=== PATIENT | male | born 1950 | race Caucasian/White ===

== ENCOUNTER 2021-08-03 13:11 | Outpatient (REF) | payer OTHER, MEDICARE, SELFPAY ==
--- NOTE | 2021-08-03 13:19 | EEG_ITS ---
SUBJECTIVE: This is a 16-channel EEG with an EKG lead. The patient is reported awake during the tracing. Background EEG rhythm is about 8 hertz, 5 to 70 microvolt posteriorly, lower amplitude fast anteriorly. Photic stimulation does not produce any significant driving. Hyperventilation is not performed. Cardiac lead does not reveal any significant abnormality. No sharp wave spikes or paroxysmal tendency or asymmetry noted. IMPRESSION: No significant abnormality noted on this EEG. MD PATRICIO Beavers/FABRICIO / [id number]
== END 2021-08-03 13:12 | disposition home or self-care (01) ==
LOC: HO.NEURO 13:11
PROVIDERS: PCP Internal Medicine; Visit Provider Psychiatry & Neurology Neurology
DX: R55 Syncope and collapse (principal)
CPT/HCPCS: 95816

== ENCOUNTER 2022-06-29 14:58 | Outpatient (REF) | payer MEDICARE, OTHER, SELFPAY ==
[2022-06-29 16:58] LABS: Folate 17.9 ng/mL (> or = 4.0); Vitamin B12 419 pg/mL (200-900)
[2022-07-03 17:24] LABS: Lyme Abs Screen <0.90 index
[2022-07-04 13:39] LABS: IgA 515 mg/dL (70-320); IgG 1410 mg/dL (600-1540); IgM 26 mg/dL (50-300)
[2022-07-04 21:08] LABS: Treponema pallidum Ab FTA ABS Nonreactive (Nonreactive)
== END 2022-06-29 14:59 | disposition home or self-care (01) ==
LOC: HO.LAB 14:58
PROVIDERS: PCP Internal Medicine; Visit Provider Psychiatry & Neurology Neurology
DX: G62.9 Polyneuropathy, unspecified (principal)
CPT/HCPCS: 36415; 82607; 82746; 82784; 86334; 86617; 86618; 86780

== ENCOUNTER → 2022-10-18 10:03 | Outpatient (BNVA) | payer MEDICARE, OTHER, SELFPAY | PROVIDERS: PCP Internal Medicine; Visit Provider Urology | DX: N13.30 Unspecified hydronephrosis (principal); N40.0 Benign prostatic hyperplasia without lower urinary tract symptoms | CPT/HCPCS: Q3014 ==

== ENCOUNTER → 2022-10-25 13:03 | Outpatient (BNVA) | payer MEDICARE, OTHER, SELFPAY | PROVIDERS: PCP Internal Medicine; Visit Provider Urology | DX: N40.0 Benign prostatic hyperplasia without lower urinary tract symptoms (principal); N13.30 Unspecified hydronephrosis; N32.9 Bladder disorder, unspecified | CPT/HCPCS: Q3014 ==

== ENCOUNTER 2023-02-06 10:09 | Outpatient (AMB) | payer OTHER, SELFPAY ==
--- NOTE | 2023-02-06 10:09 | MHC.OFFVIS ---
Intake Intake Visit Reasons: H&P (turbt 02/12/23) Intake Note: Patient is present for Telephone H&P Turbt (02/12/23) Urology Med: Finasteride, Tamsulosin Antibiotic Allergy: None Blood Thinner: None Pharmacy: [facility] Allergies modafinil [From Provigil] Allergy (Mild, Verified 02/06/23 10:10) unknown HPI HPI Comments History of Present Illness Details [place] is a pleasant male. He is a patient of Dr Johnston/Haley. He is seen for the following urologic issues - right hydronephrosis - possible bladder tumor - lower urinary tract symptoms Telemedicine Evaluation 15 min Consultation [employer] Mora Video attempted Planned for TURBT next week Main concern is pain relief after procedure Background diabetes - multiagent Hydronephrosis Right hydronephrosis Found incidentally during evaluation for cyst on spinal MRI Does not report symptoms Ultrasound shows right hydronephrosis with small stone Bladder tumor Incidental finding on ultrasound 2 times 1.5 cm lesions in bladder Concomitant incomplete bladder emptying Lower urinary tract symptoms Longstanding tamsulosin At this point appears to have overflow incontinence Exchange terazosin for tamsulosin PFSH Medical History H/O testicular biopsy Tobacco use Eczema Erectile dysfunction Hyperlipidemia Tendonitis Depression Acute saddle pulmonary embolism with acute cor pulmonale Vitamin B 12 deficiency Vitamin D deficiency Back pain Cholelithiases IBS (irritable bowel syndrome) Sleep apnea Anxiety BPH (benign prostatic hyperplasia) Lung nodule Parkinsons disease Tremor Diabetes mellitus, type II COPD (chronic obstructive pulmonary disease) Surgical History Hx of vascular surgery History of dental surgery Hx of umbilical hernia repair H/O cataract removal with insertion of prosthetic lens Social History Advance Directives: No Advance Directives Information Provided: Yes Review of Systems Const All systems reviewed & are unremarkable except as noted in HPI and below Denies chills and Denies fever(s) Card Reports no additional complaints and Denies syncope Resp Denies cough GI Denies abdominal pain and Denies heartburn Reports as per HPI and Denies change in libido Musc Reports no additional complaints Neuro Denies syncope Psych Denies change in libido Endo Denies change in libido Physical Exam Telemedicine evaluation Appropriate responses Regular breathing rate and rhythm HEENT Head: Yes normal to inspection Ears: hearing grossly normal bilaterally Eyes General: appearance normal, both eyes and all related structures Neck Neck: Yes normal visual inspection Chest Chest palpation & inspection: normal inspection of the chest Resp Effort & Inspection: normal respiratory effort and able to speak in complete sentences Assessment & Plan Assessment & Plan (1) Bladder cancer: Code(s): C67.9 - Malignant neoplasm of bladder, unspecified Qualifiers: Bladder location: unspecified site Qualified Code(s): C67.9 - Malignant neoplasm of bladder, unspecified Plan Risks, benefits and alternatives to therapy were discussed. These include but are not limited to infection, bleeding, damage to local organs and tissues, need for further interventions. Anesthetic risks regarding cardiac arrhythmia, blood clots, and potential mortality were discussed. The patient understands the typical recovery time and the outpatient nature of the procedure. After consideration of these risks the patient gives full informed consent and they wish to move ahead with the procedure. Cystoscopy, TURBT Patient Instructions: Imaging studies, laboratory and physical exam results were discussed and reviewed in detail. No major barriers to patient understanding were identified. An opportunity to ask questions regarding the treatment plan was provided. All questions were answered. The patient expressed understanding and agreement with the above treatment plan. The patient is aware they should contact our office by phone for worsening of their current condition or the appearance of new urologic symptoms. Compliance is encouraged with any medications and followup testing that is ordered. It is a privilege to participate in the urologic care of your patient. If you have any questions or concerns regarding treatment for the above conditions, or other urologic issues, please do not hesitate to contact me. The office telephone contact is [phone]. This note is constructed using voice recognition software. While every effort has been made to ensure accuracy pressurised container filler errors may have been included. Yours sincerely, Dr Juan Farias MD, [facility] - Urology Providers of Expert, Compassionate Care for the Genitourinary System Telehealth Telehealth Location of provider rendering services: practice address Location of patient: address on file Patient Identification confirmed using: Name, : Yes Telehealth method: video Patient verbally consented to treatment: Yes Patient verbally consented to billing insurance company: Yes Patient informed of any privacy concerns related to visit: Yes Coding Level of Care Code Tele Est Pt Level 3 (78544) Diagnoses Malignant neoplasm of urinary bladder, unspecified site C67.9 Bladder location: unspecified site
== END 2023-02-06 13:46 | disposition home or self-care (01) ==
LOC: HO.HUSH 10:09
PROVIDERS: PCP Internal Medicine; Visit Provider Urology
DX: C67.9 Malignant neoplasm of bladder, unspecified (principal)
CPT/HCPCS: 99213

== ENCOUNTER → 2023-02-06 10:09 | Outpatient (BNVA) | payer OTHER, MEDICARE, SELFPAY | PROVIDERS: PCP Internal Medicine; Visit Provider Urology ==

== ENCOUNTER 2023-02-12 10:23 | Day surgery (SDC) | payer MEDICARE, OTHER, SELFPAY ==
[2023-01-04 07:51] VITALS: BMI 24.4
--- NOTE | 2023-01-08 13:51 | PC.NURSE ---
patient ate 2 pieces of toast, an orange and a cup of coffee/cream. dr. langley and dr lee updated. patient procedure was cancelled and patient aware to call dr. moore to reschedule.
--- NOTE | 2023-02-09 12:09 | HO.ANESPROP2 ---
Documented by User: Dorene Delvalle NP 02/09/23 12:12 HPI - Anesthesia Eval Consult details Narrative: 72yo M for TUR Bladder Tumor with gemcitabine Right retrograde PCP eval 09/2022 - chronic issues stable PMFSH Active Problems Active Problems: All Active Problems (Updated 01/08/23 @ 10:03 by Charley Hinson [facility]) Bladder cancer (Acute) Hydronephrosis (Acute) Lesion of bladder (Acute) BPH (benign prostatic hyperplasia) (Acute) Past Medical History Medical History H/O testicular biopsy Tobacco use Eczema Erectile dysfunction Hyperlipidemia Tendonitis Depression Acute saddle pulmonary embolism with acute cor pulmonale Vitamin B 12 deficiency Vitamin D deficiency Back pain Cholelithiases IBS (irritable bowel syndrome) Sleep apnea Anxiety BPH (benign prostatic hyperplasia) Lung nodule Parkinsons disease Tremor Diabetes mellitus, type II COPD (chronic obstructive pulmonary disease) Surgical History Surgical History Hx of vascular surgery History of dental surgery Hx of umbilical hernia repair H/O cataract removal with insertion of prosthetic lens Social History Social History Patient Tobacco Use Status: Current everyday Tobacco user Tobacco use type: Cigarette Cigarette Packs Per Day: 1.5 Cigarettes Per Day: 30.0 Use of substances other than those prescribed or required for medical reasons: No Are you DNR?: No Advance Directives: No Advance Directives Information Provided: Yes Meds Allergies Allergy/AdvReac Type Severity Reaction Status Date / Time modafinil [From Provigil] AdvReac Severe unknown Verified 02/12/23 12:05 Home Medications Medication Instructions Recorded Confirmed Last Taken Type bupropion HCl 150 mg tablet,12 hr 150 mg PO Q12H 10/18/22 01/04/23 Unknown History sustained-release (Wellbutrin SR) gabapentin 300 mg capsule 300 mg PO BID 10/18/22 01/04/23 Unknown History metformin 750 mg tablet,extended 1,500 mg PO DAILY 10/18/22 01/04/23 Unknown History release 24 hr tamsulosin 0.4 mg capsule 0.4 mg PO DAILY 10/18/22 01/04/23 Unknown History capsaicin 0.1 % topical cream appl topical 01/04/23 01/04/23 Unknown History (Capzasin-HP) carboxymethylcellulose sodium 1 % 1 drp ophthalmic (eye) DAILY 01/04/23 01/04/23 Unknown History eye liquid gel drops (Refresh Liquigel) cholecalciferol (vitamin D3) 50 50 mcg PO DAILY 01/04/23 01/04/23 Unknown History mcg (2,000 unit) capsule (Vitamin D3) clobetasol 0.05 % topical cream 1 appl topical BID PRN Skin 01/04/23 01/04/23 Unknown History Irritation duloxetine 60 mg capsule,delayed 60 mg PO DAILY 01/04/23 01/04/23 Unknown History release empagliflozin 25 mg tablet 25 mg PO DAILY 01/04/23 01/04/23 Unknown History (Jardiance) finasteride 5 mg tablet 5 mg PO DAILY 01/04/23 01/04/23 Unknown History insulin aspart U-100 100 unit/mL 12 unit subcut BID 01/04/23 01/04/23 Unknown History (3 mL) subcutaneous pen (Novolog FlexPen U-100 Insulin aspart) insulin glargine 100 unit/mL (3 55 unit subcut BEDTIME 01/04/23 01/04/23 Unknown History mL) subcutaneous pen (Lantus Solostar U-100 Insulin) loperamide 2 mg tablet 2 mg PO TID PRN Diarrhea 01/04/23 01/04/23 Unknown History lorazepam 0.5 mg tablet 0.5 mg PO TID PRN Anxiety 01/04/23 01/04/23 Unknown History semaglutide 1 mg/dose (2 mg/1.5 1 mg subcut QWEEK 01/04/23 01/04/23 Unknown History mL) subcutaneous pen injector Exam Exam Date and Time: February 09, 2023 1209 Height,Weight and Vital Signs: Height 5 ft 9 in Weight 74.843 kg Assessment and Plan Assessment Anesthesia Assessment: Chart Reviewed Documented by User: Kristi Pineda MD 02/12/23 13:03 [facility] Active Problems Active Problems: All Active Problems (Updated 02/12/23 @ 12:39 by Kristi Pineda MD) Bladder cancer (Acute) Hydronephrosis (Acute) Lesion of bladder (Acute) BPH (benign prostatic hyperplasia) (Acute) Past Medical History Medical History H/O testicular biopsy Tobacco use Eczema Erectile dysfunction Hyperlipidemia Tendonitis Depression Acute saddle pulmonary embolism with acute cor pulmonale Vitamin B 12 deficiency Vitamin D deficiency Back pain Cholelithiases IBS (irritable bowel syndrome) Sleep apnea Anxiety BPH (benign prostatic hyperplasia) Lung nodule Parkinsons disease Tremor Diabetes mellitus, type II COPD (chronic obstructive pulmonary disease) Family History Family history of problems with anesthesia: No Surgical History Surgical History Hx of vascular surgery History of dental surgery Hx of umbilical hernia repair H/O cataract removal with insertion of prosthetic lens History of Problems with Anesthesia: No Social History Social History Patient Tobacco Use Status: Current everyday Tobacco user Tobacco use type: Cigarette Cigarette Packs Per Day: 1.5 Cigarettes Per Day: 30.0 Use of substances other than those prescribed or required for medical reasons: No Are you DNR?: No Advance Directives: No Advance Directives Information Provided: Yes Meds Allergies Allergy/AdvReac Type Severity Reaction Status Date / Time modafinil [From Provigil] AdvReac Severe unknown Verified 02/12/23 12:05 Home Medications Medication Instructions Recorded Confirmed Last Taken Type bupropion HCl 150 mg tablet,12 hr 150 mg PO Q12H 10/18/22 01/04/23 Unknown History sustained-release (Wellbutrin SR) gabapentin 300 mg capsule 300 mg PO BID 10/18/22 01/04/23 Unknown History metformin 750 mg tablet,extended 1,500 mg PO DAILY 10/18/22 01/04/23 Unknown History release 24 hr tamsulosin 0.4 mg capsule 0.4 mg PO DAILY 10/18/22 01/04/23 Unknown History capsaicin 0.1 % topical cream appl topical 01/04/23 01/04/23 Unknown History (Capzasin-HP) carboxymethylcellulose sodium 1 % 1 drp ophthalmic (eye) DAILY 01/04/23 01/04/23 Unknown History eye liquid gel drops (Refresh Liquigel) cholecalciferol (vitamin D3) 50 50 mcg PO DAILY 01/04/23 01/04/23 Unknown History mcg (2,000 unit) capsule (Vitamin D3) clobetasol 0.05 % topical cream 1 appl topical BID PRN Skin 01/04/23 01/04/23 Unknown History Irritation duloxetine 60 mg capsule,delayed 60 mg PO DAILY 01/04/23 01/04/23 Unknown History release empagliflozin 25 mg tablet 25 mg PO DAILY 01/04/23 01/04/23 Unknown History (Jardiance) finasteride 5 mg tablet 5 mg PO DAILY 01/04/23 01/04/23 Unknown History insulin aspart U-100 100 unit/mL 12 unit subcut BID 01/04/23 01/04/23 Unknown History (3 mL) subcutaneous pen (Novolog FlexPen U-100 Insulin aspart) insulin glargine 100 unit/mL (3 55 unit subcut BEDTIME 01/04/23 01/04/23 Unknown History mL) subcutaneous pen (Lantus Solostar U-100 Insulin) loperamide 2 mg tablet 2 mg PO TID PRN Diarrhea 01/04/23 01/04/23 Unknown History lorazepam 0.5 mg tablet 0.5 mg PO TID PRN Anxiety 01/04/23 01/04/23 Unknown History semaglutide 1 mg/dose (2 mg/1.5 1 mg subcut QWEEK 01/04/23 01/04/23 Unknown History mL) subcutaneous pen injector Exam Height,Weight and Vital Signs: Height 5 ft 9 in Weight 74.843 kg Vital Signs Temp Pulse Resp BP Pulse Ox O2 Del Method 02/12/23 12:28 97.2 F 84 16 128/75 99 Room Air Pertinent Lab Results Pertinent Lab Results: Lab Results 02/12/23 Range/Units 12:06 WBC 9.3 (4.8-10.8) X10*3/uL RBC 5.17 (4.60-5.80) X10*6/uL Hgb 16.0 (14.0-18.0) g/dl Hct 48.6 (42.0-52.0) % MCV 94.0 (80.0-98.0) fL MCH 30.9 (27.0-33.0) pg MCHC 32.9 (31.0-36.0) g/dl RDW 14.3 (11.0-16.0) % Plt Count 239 (160-400) X10*3/uL MPV 9.7 (9.4-12.4) fL Absolute Nucleated RBC 0.000 (0.0-0.012) X10*3/uL Nucleated RBC % (auto) 0.0 (0.0-0.2) /100WBC Sodium 140 (135-145) mmol/L Potassium 4.5 (3.3-5.1) mmol/L Chloride 104 (96-108) mmol/L Carbon Dioxide 25 (22-29) mmol/L Anion Gap 16 (12-20) BUN 14 (9-16) mg/dL Creatinine 1.01 (0.5-1.4) mg/dL Estim Creat Clear Calc 64.1 Estimated GFR > 60 Fasting Glucose 121 H (60-99) mg/dL Calcium 9.2 (8.4-10.2) mg/dL Airway Mallampati Class: II TM Dist: >3cm Neck ROM: Limited (but extension ok) Denture: Upper and Lower Heart: RRR Lungs: Diminished BS. No wheezing Assessment and Plan Assessment Anesthesia Assessment: Anesthesia Plan Discussed Final Anesthetic Review Family History of Problems with Anesthesia: No History of Problems with Anesthesia: No NPO: Yes ASA Class: III Final Preanesthetic Review: No Changes in Pt Med Stat, Meds/Allgs Chart Reviewed, Consent Obtained/Reviewed and Anes Risks/Benef Reviewed Patient Risk: Intermediate Procedure Risk: Low Assessment/Block/Sedation in SS: Assess/Block/Sedation-SS Anesthetic Plan Anesthetic Plan: GA Disposition: Standard PACU
[2023-02-12] VITALS (11 sets, daily range): BP systolic 91–136; BP diastolic 38–75; PULSE 84–93; RESP 16–18; TEMP 36.2–36.6; O2SAT 96–99
--- NOTE | ~2023-02-12 | FL_ITS ---
EXAMINATION: XR FLUOROSCOPY WITH IMAGES CLINICAL INFORMATION: Left retrograde per performing provider. COMPARISON: None available. TECHNIQUE: Fluoroscopy Supervised By: Dr. Juan Farias. Fluoroscopy Time: 14.5 seconds. Cumulative Dose: 5.22 mGy. DAP: Not available. Images: 1. FINDINGS: Single image demonstrates contrast opacification of the left proximal ureter, which appears normal. FL/FL guidance in OR IMPRESSION: Fluoroscopy guidance for left retrograde exam.
--- NOTE | 2023-02-12 11:22 | ECG_ITS ---
Test Reason : patricia, preop Blood Pressure : / mmHG Vent. Rate : 085 BPM Atrial Rate : 085 BPM P-R Int : 274 ms QRS Dur : 086 ms QT Int : 386 ms P-R-T Axes : 066 -74 069 degrees QTc Int : 459 ms Sinus rhythm with 1st degree A-V block Left axis deviation Nonspecific T wave abnormality Abnormal ECG No previous ECGs available Referred By: Dorene Delvalle Electronically Signed By:REENA WADDELL
[2023-02-12 12:19] LABS: Hematocrit 48.6 % (42.0-52.0); Mean Corpuscular HGB Conc 32.9 g/dl (31.0-36.0); Mean Corpuscular Hemoglobin 30.9 pg (27.0-33.0); Mean Platelet Volume 9.7 fL (9.4-12.4); Platelet Count 239 X10*3/uL (160-400); Red Blood Count 5.17 X10*6/uL (4.60-5.80); Red Cell Distribution Width 14.3 % (11.0-16.0); White Blood Count 9.3 X10*3/uL (4.8-10.8)
[2023-02-12 12:28] LABS: Anion Gap 16 (12-20); Blood Urea Nitrogen 14 mg/dL (9-16); Calcium 9.2 mg/dL (8.4-10.2); Carbon Dioxide 25 mmol/L (22-29); Chloride 104 mmol/L (96-108); Creatinine Clr Calc Pharmacy 64.1; Estimated Glomerular Filt Rate > 60; Glucose Fasting 121 mg/dL (60-99); Potassium 4.5 mmol/L (3.3-5.1); Sodium 140 mmol/L (135-145)
[2023-02-12] MEDS: Lactated Ringers 1,000 ML 100 ML IVCONT (12:36)
--- NOTE | 2023-02-12 12:45 | MHC.SHP ---
Pre-Procedural Eval Section A Date of Service: 02/12/23 The patient is an INPATIENT: No Changes since office visit: No Cold of Flu in the past 2 weeks, No New Medical Problems, No Changes in Medication and No Patient answered all questions The History & Physical has been completed within 30 days and I have reviewed it.: No Section B Chief Complaint: Bladder disorder, unspecified Details of Present Illness: Cystoscopy, TURBT Allergies: Allergies Allergy/AdvReac Type Severity Reaction Status Date / Time modafinil [From Provigil] AdvReac Severe unknown Verified 02/12/23 12:05 Plan Diagnosis/Plan: Unchanged (Cystoscopy, TURBT with gemcitabine) I have reviewed the history and physical and performed a pertinent physical examination on my patient. No changes have occurred unless specified. Time Spent With Patient Time: Total time managing care of this patient today ____ minutes.
[2023-02-12] MEDS: Albuterol Sulfate (0.083%) 2.5 MG/3 ML VIAL.NEB INHALE (13:00)
--- NOTE | 2023-02-12 14:07 | P.OP_ITS ---
Operative Note Operative Note Date of Service: 02/12/23 Narrative: PreOperative Diagnosis: bladder cancer Post Operative Diagnosis: bladder cancer Procedure: TURBT Large, bilateral retrograde and Gemcitabine installation Surgeon: Dr Juan Farias Anesthesia: general Indications for procedure: lesions seen on CT scan with right hydro ureteral nephrosis Procedure: After informed consent was verified the patient was brought to the operating room and placed in a supine position. Anesthesia was administered per protocol. The patient was placed in a modified dorsal lithotomy position and prepped and draped in a sterile fashion. Safety pause time-out was performed. Antibiotics were confirmed. A 26 Macedonian continuous flow resectoscope was inserted per urethra. The visual obturator was used in order to minimize potential for urethral damage. there was general mucosal reactivity throughout the bladder. Narrow band imaging showed this was not definitively cancer but certainly metaplasia changes. The right ureteric opening was found. There was some J hooking in the area of the right ureteric orifice. Cannulation was performed paired retrograde performed. There was right mild hydroureteronephrosis down to the level of the UPJ. Good efflux was seen from ureter into the bladder. The left ureteric orifice was identified. 3 cm bladder tumor Superficial lesion was identified approximately 2 cm proximal to the left ureteric orifice. the open-ended catheter was placed in the left ureteric orifice to protect this. The scope was replaced and resection performed on the 1st lesion. There were 2- 3 sub 1 cm satellite lesions in the area. There was also a sidewall lesion up the left bladder sidewall proximally 1/2 cm in diameter. After appropriate anesthesia paresis and been given this area was able to be Properly resected. At the completion of the procedure the bladder was irrigated. The cystoscope was removed. A [address] Fernandez catheter was inserted into the bladder. 10 cc was placed in the balloon. 2 g of gemcitabine in 100 cc of normal saline was instilled into the bladder. The flow from the catheter was left clamped. The inflow to the catheter was attached to a 3 L normal saline bag. The patient tolerated the procedure well. They were extubated in the operating room and transferred in stable condition to the recovery area. Gemcitabine will remain in the bladder for 1 hour. At the completion of 1 hour the clamp will be removed. The gemcitabine will be allowed to egress to the uri ne collection bag. The 3 L bag of normal saline will be run at maximum rate through the bladder in order to dilute any residual gemcitabine. The Fernandez catheter will then be removed. Pathology: Bladder tumor Drains: as above
== END 2023-02-12 16:30 | disposition home or self-care (01) ==
PROVIDERS: Nurse Practitioner; Absent Provider Physician Assistant Medical; PCP Internal Medicine; Visit Provider Urology
PROC: 0TBB8ZZ Excision of Bladder, Via Natural or Artificial Opening Endoscopic (ICD-10-PCS; CPT 52240; principal; 2023-02-12 12:50)
DX: C67.9 Malignant neoplasm of bladder, unspecified (principal); N40.0 Benign prostatic hyperplasia without lower urinary tract symptoms; J44.9 Chronic obstructive pulmonary disease, unspecified; N13.30 Unspecified hydronephrosis; G20 Parkinson's disease; F41.1 Generalized anxiety disorder; I26.02 Saddle embolus of pulmonary artery with acute cor pulmonale; E11.9 Type 2 diabetes mellitus without complications; Z79.4 Long term (current) use of insulin; Z79.899 Other long term (current) drug therapy; Z88.8 Allergy status to other drugs, medicaments and biological substances; Z98.890 Other specified postprocedural states; F17.210 Nicotine dependence, cigarettes, uncomplicated
CPT/HCPCS: 52240; 51720; 36415; 80048; 85027; 88307; 93005; 94640; C1769; J1956; J3010; J9201; J9280; Q9967

== ENCOUNTER → 2023-02-12 10:23 | Outpatient (BNV) | payer OTHER, SELFPAY | PROVIDERS: Absent Provider Physician Assistant Medical; PCP Internal Medicine; Visit Provider Urology | DX: C67.8 Malignant neoplasm of overlapping sites of bladder (principal) | CPT/HCPCS: 52240; 74420 ==

== ENCOUNTER 2023-02-28 11:53 | Outpatient (AMB) | payer OTHER, SELFPAY ==
--- NOTE | 2023-02-28 11:54 | A.OFFVIS_ITS ---
Intake Intake Visit Reasons: 2 wk post (turbt) Intake Note: Patient is Present for Telephone Follow Up For Urology Med:TAMSULOSIN, FINASTERIDE Antibiotic Allergy:MODAFINIL Blood Thinner:NO [facility] Allergies modafinil [From Provigil] Adverse Reaction (Severe, Verified 02/28/23 11:56) unknown HPI HPI Comments History of Present Illness Details Jersey is a pleasant male. He is a patient of Dr Johnston/Haley. He is seen for the following urologic issues - right hydronephrosis - possible bladder tumor - lower urinary tract symptoms Telemedicine Evaluation 15 min Consultation [employer] Mora Video attempted TURBT completed Superficial high-grade bladder cancer T1 Plan for gemcitabine induction with three-month follow-up cysto, bladder biopsy, fulguration Bladder cancer - 03/12 superficial high-grade Incidental finding on ultrasound 2 times 1.5 cm lesions in bladder Concomitant incomplete bladder emptying TURBT 03/12 superficial high-grade T1 Hydronephrosis Right hydronephrosis Found incidentally during evaluation for cyst on spinal MRI Does not report symptoms Ultrasound shows right hydronephrosis with small stone Lower urinary tract symptoms Longstanding tamsulosin At this point appears to have overflow incontinence Exchange terazosin for tamsulosin PFSH Medical History H/O testicular biopsy Tobacco use Eczema Erectile dysfunction Hyperlipidemia Tendonitis Depression Acute saddle pulmonary embolism with acute cor pulmonale Vitamin B 12 deficiency Vitamin D deficiency Back pain Cholelithiases IBS (irritable bowel syndrome) Sleep apnea Anxiety BPH (benign prostatic hyperplasia) Lung nodule Parkinsons disease Tremor Diabetes mellitus, type II COPD (chronic obstructive pulmonary disease) Surgical History Hx of vascular surgery History of dental surgery Hx of umbilical hernia repair H/O cataract removal with insertion of prosthetic lens Social History Patient Tobacco Use Status: Current everyday Tobacco user Tobacco use type: Cigarette Cigarette Packs Per Day: 1.5 Cigarettes Per Day: 30.0 Review of Systems Const All systems reviewed & are unremarkable except as noted in HPI and below Reports no additional complaints Resp Reports no additional complaints GI Reports no additional complaints Reports as per HPI Musc Reports no additional complaints Physical Exam Telemedicine evaluation Appropriate responses Regular breathing rate and rhythm HEENT Head: Yes normal to inspection Ears: hearing grossly normal bilaterally Eyes General: appearance normal, both eyes and all related structures Neck Neck: Yes normal visual inspection Chest Chest palpation & inspection: normal inspection of the chest Resp Effort & Inspection: normal respiratory effort and able to speak in complete sentences Assessment & Plan Assessment & Plan (1) Bladder cancer: Code(s): C67.9 - Malignant neoplasm of bladder, unspecified Qualifiers: Bladder location: unspecified site Qualified Code(s): C67.9 - Malignant neoplasm of bladder, unspecified Plan Bladder immunotherapy Bladder immuno/chemotherapy was discussed today. These medications are used to create an immune reaction against bladder cancer. The intention is to destroy any tumor cells left on the bladder surface. Since BCG and gemcitabine involved immunostimulation they are not indicated in situations where there is immune weakness. Medications are placed directly into the bladder. It should be held for one to 2 hours. The toilet should be disinfected with a cap full of household bleach prior to urination. Side effects from BCG and gemcitabine generally include mucosa-related changes such as urinary urgency and/or frequency, and hematuria BCG may also invoke an infection type response. An elevated temperature may be indicative of more serious issues and should be reported to the Dr. The intention with bladder immunotherapy is to reduce the frequency of bladder cancer recurrence by 50%. Multiple protocols are available - [facility] plus Cytarabine for alkalinization - 40mg/200mg in 40mg - Sequential Gemcitabine/Docetaxel - 1gm in 50cc NSal 60min/37.5mg in 50cc NSal 60min Will undergo - gemcitabine 6 week induction Patient Instructions: Imaging studies, laboratory and physical exam results were discussed and reviewed in detail. No major barriers to patient understanding were identified. An opportunity to ask questions regarding the treatment plan was provided. All questions were answered. The patient expressed understanding and agreement with the above treatment plan. The patient is aware they should contact our office by phone for worsening of their current condition or the appearance of new urologic symptoms. Compliance is encouraged with any medications and followup testing that is ordered. It is a privilege to participate in the urologic care of your patient. If you have any questions or concerns regarding treatment for the above conditions, or other urologic issues, please do not hesitate to contact me. The office tele phone contact is [phone]. This note is constructed using voice recognition software. While every effort has been made to ensure accuracy it consultant errors may have been included. Yours sincerely, Dr Juan Farias MD, [facility] - Urology Providers of Expert, Compassionate Care for the Genitourinary System Telehealth Telehealth Location of provider rendering services: practice address Location of patient: address on file Patient Identification confirmed using: Name, : Yes Telehealth method: video Patient verbally consented to treatment: Yes Patient verbally consented to billing insurance company: Yes Patient informed of any privacy concerns related to visit: Yes Coding Level of Care Code Tele Est Pt Level 4 (70888) Diagnoses Malignant neoplasm of urinary bladder, unspecified site C67.9 Bladder location: unspecified site
== END 2023-02-28 15:50 | disposition home or self-care (01) ==
LOC: HO.HUSH 11:53
PROVIDERS: PCP Internal Medicine; Visit Provider Urology
DX: C67.9 Malignant neoplasm of bladder, unspecified (principal)
CPT/HCPCS: 99214

== ENCOUNTER 2023-02-28 11:53 | Outpatient (REF) | payer OTHER, SELFPAY | END 2023-02-28 11:54 | disposition home or self-care (01) | LOC: CF 11:53 | PROVIDERS: PCP Internal Medicine; Visit Provider Urology | DX: Z13.89 Encounter for screening for other disorder (principal) ==

== ENCOUNTER 2023-03-07 11:17 | Outpatient (AMB) | payer OTHER, SELFPAY ==
--- NOTE | 2023-03-07 11:58 | A.OFFVIS_ITS ---
Intake Intake Visit Reasons: follow up/ Speak to patient and son Intake Note: Patient is Present for Telephone Follow Up For BPH Urology Med:TAMSULOSIN, FINASTERIDE Antibiotic Allergy:MODAFINIL Blood Thinner:NO [facility] Handling Technician Required: No Accompanied by: Son Allergies modafinil [From Provigil] Adverse Reaction (Severe, Verified 03/07/23 11:58) unknown HPI HPI Comments History of Present Illness Details Jersey is a pleasant male. He is a patient of Dr Johnston/Haley. He is seen for the following urologic issues - right hydronephrosis - possible bladder tumor - lower urinary tract symptoms Telemedicine Evaluation 15 min Consultation [employer] Mora Video attempted Had questions regarding medications Has doxycycline for cystitis at time of procedure Current bladder performance = stable Bladder cancer - 02/10 superficial high-grade Incidental finding on ultrasound 2 times 1.5 cm lesions in bladder Concomitant incomplete bladder emptying TURBT 02/10 superficial high-grade T1 Immunotherapy - 03/12 gemcitabine induction Hydronephrosis Right hydronephrosis Found incidentally during evaluation for cyst on spinal MRI Does not report symptoms Ultrasound shows right hydronephrosis with small stone Lower urinary tract symptoms Longstanding tamsulosin At this point appears to have overflow incontinence Exchange terazosin for tamsulosin Add finasteride PFSH Medical History H/O testicular biopsy Tobacco use Eczema Erectile dysfunction Hyperlipidemia Tendonitis Depression Acute saddle pulmonary embolism with acute cor pulmonale Vitamin B 12 deficiency Vitamin D deficiency Back pain Cholelithiases IBS (irritable bowel syndrome) Sleep apnea Anxiety BPH (benign prostatic hyperplasia) Lung nodule Parkinsons disease Tremor Diabetes mellitus, type II COPD (chronic obstructive pulmonary disease) Surgical History Hx of vascular surgery History of dental surgery Hx of umbilical hernia repair H/O cataract removal with insertion of prosthetic lens Social History Patient Tobacco Use Status: Current everyday Tobacco user Tobacco use type: Cigarette Cigarette Packs Per Day: 1.5 Cigarettes Per Day: 30.0 Review of Systems Const All systems reviewed & are unremarkable except as noted in HPI and below Reports no additional complaints Resp Reports no additional complaints GI Reports no additional complaints Reports as per HPI Musc Reports no additional complaints Physical Exam Telemedicine evaluation Appropriate responses Regular breathing rate and rhythm HEENT Head: Yes normal to inspection Ears: hearing grossly normal bilaterally Eyes General: appearance normal, both eyes and all related structures Neck Neck: Yes normal visual inspection Chest Chest palpation & inspection: normal inspection of the chest Resp Effort & Inspection: normal respiratory effort and able to speak in complete sentences Assessment & Plan Assessment & Plan (1) Hydronephrosis: Code(s): N13.30 - Unspecified hydronephrosis (2) Bladder cancer: Code(s): C67.9 - Malignant neoplasm of bladder, unspecified Qualifiers: Bladder location: unspecified site Qualified Code(s): C67.9 - Malignant neoplasm of bladder, unspecified (3) BPH (benign prostatic hyperplasia): Code(s): N40.0 - Benign prostatic hyperplasia without lower urinary tract symptoms Qualifiers: Lower urinary tract symptom presence: symptoms present Lower urinary tract symptom detail: nocturia Qualified Code(s): N40.1 - Benign prostatic h yperplasia with lower urinary tract symptoms; R35.1 - Nocturia Plan Bladder immunotherapy Follow-up bladder biopsy On suppression doxycycline for cystitis Patient Instructions: Imaging studies, laboratory and physical exam results were discussed and reviewed in detail. No major barriers to patient understanding were identified. An opportunity to ask questions regarding the treatment plan was provided. All questions were answered. The patient expressed understanding and agreement with the above treatment plan. The patient is aware they should contact our office by phone for worsening of their current condition or the appearance of new urologic symptoms. Compliance is encouraged with any medications and followup testing that is ordered. It is a privilege to participate in the urologic care of your patient. If you have any questions or concerns regarding treatment for the above conditions, or other urologic issues, please do not hesitate to contact me. The office telephone contact is [phone]. This note is constructed using voice recognition software. While every effort dasilva s been made to ensure accuracy principal biostatistician errors may have been included. Yours sincerely, Dr Juan Farias MD, [facility] - Urology Providers of Expert, Compassionate Care for the Genitourinary System Telehealth Telehealth Location of provider rendering services: practice address Location of patient: address on file Patient Identification confirmed using: Name, : Yes Telehealth method: voice only Patient verbally consented to treatment: Yes Patient verbally consented to billing insurance company: Yes Patient informed of any privacy concerns related to visit: Yes Coding Level of Care Code Tele Est Pt Level 4 (56090) Diagnoses Hydronephrosis N13.30 Malignant neoplasm of urinary bladder, unspecified site C67.9 Bladder location: unspecified site Benign prostatic hyperplasia with nocturia N40.1; R35.1 Lower urinary tract symptom presence: symptoms present Lower urinary tract symptom detail: nocturia
== END 2023-03-07 15:52 | disposition home or self-care (01) ==
LOC: HO.HUSH 11:17
PROVIDERS: PCP Internal Medicine; Visit Provider Urology
DX: N13.30 Unspecified hydronephrosis (principal); C67.9 Malignant neoplasm of bladder, unspecified; N40.1 Benign prostatic hyperplasia with lower urinary tract symptoms; R35.1 Nocturia
CPT/HCPCS: 99442

== ENCOUNTER → 2023-03-07 11:17 | Outpatient (BNVA) | payer OTHER, SELFPAY | PROVIDERS: PCP Internal Medicine; Visit Provider Urology ==